=== PATIENT | male | born 1970 | race Caucasian/White ===

== ENCOUNTER 2016-06-15 04:52 | Emergency (ER) | payer OTHER ==
[~2016-06-15] VITALS: Ht 185.4 cm; Wt 145.2 kg
--- NOTE | 2016-06-15 05:17 | ED MVC/FALL/TRAUMA COMPLAINT ---
History of Present Illness General Chief Complaint: Fall Stated Complaint: FELL AT WORK TUESDAY C/O BACK/NECK Source: patient Exam Limitations: no limitations Vital Signs & Intake/Output Vital Signs & Intake/Output Vital Signs Date Time Temp Pulse Resp B/P Pulse O2 O2 Flow FiO2 Ox Delivery Rate 06/15 0632 97.0 75 18 130/84 96 06/15 0509 97.3 78 18 137/88 96 Room Air Allergies Coded Allergies: meperidine (From DEMEROL) (Mild, FEVER 06/15/16) Reconcile Medications Cyclobenzaprine HCl 10 MG TABLET 1 TAB PO 4 TIMES/DAY PRN MUSCLE SPASM Ibuprofen 800 MG TABLET 1 TAB PO TID PRN PAIN Lisinopril/Hydrochlorothiazide (Lisinopril-Hctz 20-12.5 MG Tab) 20 MG-12.5 MG TABLET 1 TAB PO DAILY HIGH BLOOD PRESSURE (Reported) Montelukast Sodium 10 MG TABLET 1 TAB PO DAILY AC ALLERGIES (Reported) Triage Note: PT C/O LOWER BACK PAIN AND NECK PAIN. PT REPORTS FALLING AT WORK TUESDAY AND PAIN GETTING INCREASINGLY WORSE Triage Nurses Notes Reviewed? yes Onset: Gradual Duration: day(s): Timing: recent history Severity: moderate Injuries/Fall Location: head, neck, back Method of Injury: fall Loss of Consciousness: no loss of consciousness Modifying Factors: Improves With: rest. Worsens With: movement. Associated Symptoms: headache, back pain, neck pain HPI: 46 yo gentleman in prior good health presents after a fall. He notes that he was at work 2 days ago (tuesday). He was carrying a meat tray. He fell and slipped back, landing on his head, neck, and lower back. He shares that he felt okay immediately afterwards but has since developed a headache, neck pain, back pain, and tingling and numbness in both hands. He is otherwise well. No bowel or bladder difficulties. No difficulty with ambulation. Past History Travel History Traveled to [place] past 21 day No Medical History Any Pertinent Medical History? see below for history Surgical History Surgical History: none Psychosocial History What is your primary language Indonesian Tobacco Use: Quit >30 days ago Family History Hx Contributory? No Review of Systems Review of Systems Constitutional: Reports: no symptoms. Eyes: Reports: no symptoms. Ears, Nose, Throat, Mouth: Reports: no symptoms. Respiratory: Reports: no symptoms. Cardiovascular: Reports: no symptoms. Gastrointestinal/Abdominal: Reports: no symptoms. Genitourinary: Reports: no symptoms. Musculoskeletal: Reports: no symptoms. Skin: Reports: no symptoms. Neurological/Psychological: Reports: no symptoms. All Other Systems: Reviewed and Negative Physical Exam Physical Exam General Appearance: well developed/nourished, mild distress Head: atraumatic, normal appearance Eyes: Bilateral: normal appearance, PERRL, EOMI. Ears, Nose, Throat, Mouth: hearing grossly normal, moist mucous membrane Neck: normal inspection, supple, paraspinous muscle tender, tender midline Respiratory: normal breath sounds, chest non-tender, no respiratory distress, quiet respiration, lungs clear Cardiovascular: regular rate/rhythm Gastrointestinal: normal bowel sounds, soft, non-tender, no organomegaly Back: normal inspection, vertebral tenderness, muscle spasm Extremities: normal range of motion Neurologic/Psych: no motor/sensory deficits, awake, alert, oriented x 3 Skin: intact, normal color, warm/dry Core Measures ACS in differential dx? No Severe Sepsis Present: No Septic Shock Present: No Progress Differential Diagnosis: C/T/L spine injury, spinal cord injury Plan of Care: Orders Procedure Date/time Status CT THOR SPINE WO IV CONTRAST 06/[address] LUMB SPINE WO IV CONTRAST 06/[address] HEAD WO IV CONTRAST 06/[address] CERV SPINE WO IV CONTRAST 06/15 532 Active Diagnostic Imaging: Viewed by Me: CT Scan. Discussed w/RAD: CT Scan. Radiology Impression: head/cervical ct... no acute disease... full reports below. , thoracic ct... mild djd, lumbar ct... no acute fx... full report below. Comments: PATIENT: KATHARINE MADERA PRESENT AGE: 46 PATIENT ACCOUNT NO: [id number] : 72 LOCATION: [facility] ORDERING PHYSICIAN: SARAH BURKS MD SERVICE DATE: 06/15/16 EXAM TYPE: CAT - CT LUMB SPINE WO IV CONTRAST EXAMINATION: CT LUMBAR SPINE WITHOUT CONTRAST CLINICAL INFORMATION: Pain. Fall. COMPARISON: None TECHNIQUE: Axial images obtained through the lumbar spine. Coronal and sagittal reformatted images are performed at CT scanner FINDINGS: No fracture. The vertebral bodies have normal height and alignment. No paraspinal hematoma. There is mild disc height narrowing at L4-L5. Small endplate spurs of the vertebrae posteriorly with slight bulge of the annulus of the disc centrally. Small ossification of the annular margin of the disc. Facet joints are normal. IMPRESSION: No fracture of the lumbar spine. DICTATED BY: BELEM CREWS MD DATE/TIME DICTATED:06/15/16631 FURNACE CONVERTER:AMY DATE/TIME TRANSCRIBED:06/15/16631 CONFIDENTIAL, DO NOT COPY WITHOUT APPROPRIATE AUTHORIZATION. <Electronically signed in Other Vendor System> SIGNED BY: BELEM CREWS MD 06/15/16638 PATIENT: KATHARINE MADERA PRESENT AGE: 46 PATIENT ACCOUNT NO: [id number] : 72 LOCATION: [facility] ORDERING PHYSICIAN: SARAH BURKS MD SERVICE DATE: 06/15/16 EXAM TYPE: CAT - CT THOR SPINE WO IV CONTRAST EXAMINATION: CT THORACIC SPINE WITHOUT CONTRAST CLINICAL INFORMATION: Pain after fall. COMPARISON: None TECHNIQUE: Axial images obtained through thoracic spine. Coronal and sagittal reformatted images are performed at the CT scanner CT chest for CAT scan of thoracic spine and CAT scan of lumbar spine DLP: 2708.41 mGy-cm FINDINGS: No fracture of the vertebrae. Vertebral bodies have normal height. Normal alignment. No paraspinal hematoma or fluid collection. There is multilevel degenerative lipping at the anterior endplates of the vertebrae most notably at the midthoracic spine from mild degenerative disc disease. IMPRESSION: No fracture of thoracic spine. Mild degenerative disc disease. DICTATED BY: BELEM CREWS MD DATE/TIME DICTATED:06/15/16627 FURNACE CONVERTER:LAM DATE/TIME TRANSCRIBED:06/15/16627 CONFIDENTIAL, DO NOT COPY WITHOUT APPROPRIATE AUTHORIZATION. <Electronically signed in Other Vendor System> SIGNED BY: BELEM CREWS MD 06/15/1635 PATIENT: KATHARINE MADERA PRESENT AGE: 46 PATIENT ACCOUNT NO: [id number] : 72 LOCATION: [facility] ORDERING PHYSICIAN: SARAH BURKS MD SERVICE DATE: 06/15/16 EXAM TYPE: CAT - CT HEAD WO IV CONTRAST EXAMINATION: CT HEAD WITHOUT CONTRAST CT CERVICAL SPINE WITHOUT CONTRAST CLINICAL INFORMATION: Pain after fall. COMPARISON: None. TECHNIQUE: Imaging was performed from the skull base to vertex without intravenous administration of contrast. In addition, helical noncontrast CT imaging was acquired through the cervical spine and source images were reviewed along with axial reconstructions and sagittal and coronal MPRs. DLP: 1054.49 mGy-cm FINDINGS: HEAD: No intracranial mass, hemorrhage, or midline shift is visualized. The ventricles and sulci are age-appropriate. No extra-axial collections are identified. The paranasal sinuses and mastoid air cells are well aerated. CERVICAL SPINE: There is no evidence of acute cervical spine fracture. Vertebral bodies remain normal in height, intervertebral disc spaces are preserved, and alignment is anatomic. There is enlarged nodule in the right lobe of the thyroid measuring 5.3 x 4.3 cm. Limited assessment of the lung apices is unremarkable. IMPRESSION: 1. No acute intracranial pathology. 2. No CT evidence of acute cervical spine fracture or traumatic subluxation 2. Enlarged right lobe of thyroid. This can be further assessed with nonemergent thyroid ultrasound. DICTATED BY: BELEM CREWS MD DATE/TIME DICTATED:06/15/16619 FURNACE CONVERTER:AMY DATE/TIME TRANSCRIBED:06/15/16619 CONFIDENTIAL, DO NOT COPY WITHOUT APPROPRIATE AUTHORIZATION. <Electronically signed in Other Vendor System> SIGNED BY: BELEM CREWS MD 06/15/16629 Departure Departure Disposition: HOME OR SELF CARE Condition: Stable Clinical Impression Primary Impression: Fall Secondary Impressions: Back pain, Enlarged thyroid, Head injury Referrals: UNKNOWN (PCP/Family) Departure Forms: Customer Survey General Discharge Information Prescriptions: Current Visit Scripts Ibuprofen 1 TAB PO TID PRN PAIN #30 TAB Cyclobenzaprine HCl 1 TAB PO 4 TIMES/DAY PRN MUSCLE SPASM #30 TAB Ref 1 Comments 06/15/16, 6:47am... pt feeling better... ctscans benign... discussed results including enlarged thyroid... pt will follow up with pmd and with his occ med program.
--- NOTE | 2016-06-15 06:30 | CT SCAN REPORT ---
EXAMINATION: CT HEAD WITHOUT CONTRAST CT CERVICAL SPINE WITHOUT CONTRAST CLINICAL INFORMATION: Pain after fall. COMPARISON: None. TECHNIQUE: Imaging was performed from the skull base to vertex without intravenous administration of contrast. In addition, helical noncontrast CT imaging was acquired through the cervical spine and source images were reviewed along with axial reconstructions and sagittal and coronal MPRs. DLP: 1054.49 mGy-cm FINDINGS: HEAD: No intracranial mass, hemorrhage, or midline shift is visualized. The ventricles and sulci are age-appropriate. No extra-axial collections are identified. The paranasal sinuses and mastoid air cells are well aerated. CERVICAL SPINE: There is no evidence of acute cervical spine fracture. Vertebral bodies remain normal in height, intervertebral disc spaces are preserved, and alignment is anatomic. There is enlarged nodule in the right lobe of the thyroid measuring 5.3 x 4.3 cm. Limited assessment of the lung apices is unremarkable. IMPRESSION: 1. No acute intracranial pathology. 2. No CT evidence of acute cervical spine fracture or traumatic subluxation 2. Enlarged right lobe of thyroid. This can be further assessed with nonemergent thyroid ultrasound.
[2016-06-15] MEDS ORDERED: LISINOPRIL-HCT1 EACH PO (06:31)
--- NOTE | 2016-06-15 06:31 | CT SCAN REPORT ---
See report on accession number [id number]
[2016-06-15 06:32] VITALS: BP 130/84
[2016-06-15] MEDS ORDERED: MONTELUKAST SOD10 M1 PO (06:32)
--- NOTE | 2016-06-15 06:35 | CT SCAN REPORT ---
EXAMINATION: CT THORACIC SPINE WITHOUT CONTRAST CLINICAL INFORMATION: Pain after fall. COMPARISON: None TECHNIQUE: Axial images obtained through thoracic spine. Coronal and sagittal reformatted images are performed at the CT scanner CT chest for CAT scan of thoracic spine and CAT scan of lumbar spine DLP: 2708.41 mGy-cm FINDINGS: No fracture of the vertebrae. Vertebral bodies have normal height. Normal alignment. No paraspinal hematoma or fluid collection. There is multilevel degenerative lipping at the anterior endplates of the vertebrae most notably at the midthoracic spine from mild degenerative disc disease. IMPRESSION: No fracture of thoracic spine. Mild degenerative disc disease.
--- NOTE | 2016-06-15 06:39 | CT SCAN REPORT ---
EXAMINATION: CT LUMBAR SPINE WITHOUT CONTRAST CLINICAL INFORMATION: Pain. Fall. COMPARISON: None TECHNIQUE: Axial images obtained through the lumbar spine. Coronal and sagittal reformatted images are performed at CT scanner FINDINGS: No fracture. The vertebral bodies have normal height and alignment. No paraspinal hematoma. There is mild disc height narrowing at L4-L5. Small endplate spurs of the vertebrae posteriorly with slight bulge of the annulus of the disc centrally. Small ossification of the annular margin of the disc. Facet joints are normal. IMPRESSION: No fracture of the lumbar spine.
[2016-06-15] MEDS ORDERED: CYCLOBENZAPRINE10 M1 PO (06:46)
[2016-06-15] MEDS ORDERED: IBUPROFEN800 M1 PO (06:46)
== END 2016-06-15 07:08 ==
LOC: ERH 04:52
DX: S09.90XA Unspecified injury of head, initial encounter (principal); E04.9 Nontoxic goiter, unspecified; M54.5 Low back pain; W19.XXXA Unspecified fall, initial encounter; Y92.9 Unspecified place or not applicable; Y93.9 Activity, unspecified
CPT/HCPCS: 96372; J1885